=== PATIENT | male | born 1960 | race Caucasian/White ===

== ENCOUNTER 2018-09-16 14:31 | Outpatient (CLI) | payer OTHER ==
[2018-09-16] MEDS ORDERED: ACET-1600 PO (14:53)
[2018-09-16] MEDS ORDERED: MULT-718 PO (14:53)
[2018-09-16] MEDS ORDERED: GLUC1TAB55 PO (14:53)
[2018-09-16] MEDS ORDERED: MV-M1TAB16 PO (14:53)
[2018-09-16] MEDS ORDERED: CYAN25003 PO (14:53)
[2018-09-16] MEDS ORDERED: OXYC10TA47 PO (15:09)
[2018-09-16 15:26] LABS: BASOPHILS # (AUTO) 0.04 x10^3/uL (0-0.1); BASOPHILS % (AUTO) 1 % (0-1); EOSINOPHILS # (AUTO) 0.33 x10^3/uL (0-0.4); EOSINOPHILS % (AUTO) 6 % (1-7); LYMPHOCYTES # (AUTO) 1.39 x10^3/uL (1-3.4); LYMPHOCYTES % (AUTO) 25 % (22-44); MD NO; MEAN CORPUSCULAR HEMOGLOBIN 31.8 pg (27.5-34.5); MEAN CORPUSCULAR HGB CONC 34.3 g/dL (33.2-36.2); MEAN CORPUSCULAR VOLUME 92.7 fL (81-97); MONOCYTES # (AUTO) 0.52 x10^3/uL (0.2-0.8); MONOCYTES % (AUTO) 9 % (2-9); NEUTROPHILS # (AUTO) 3.32 x10^3/uL (1.8-6.8); NEUTROPHILS % (AUTO) 59 % (42-75); PLATELET COUNT 326 x10^3/uL (130-400); RED CELL DISTRIBUTION WIDTH 12.9 % (9.4-14.8)
[2018-09-16 15:35] LABS: ANION GAP 8 mmol/L (5-15); CALCIUM 8.8 mg/dL (8.5-10.1); CHLORIDE 106 mmol/L (98-107); CREATININE 1.02 mg/dL (0.7-1.3)
[2018-09-16 15:36] LABS: INTERNATIONAL NORMALIZED RATIO 0.99 (0.93-1.1); PROTHROMBIN TIME 10.4 Seconds (9.6-11.5)
[2018-09-21] MEDS ORDERED: PSYL1PAC9 PO (08:00)
[2018-09-21] MEDS ORDERED: LACT1CAP35 PO (08:00)
== END 2018-09-16 23:59 | disposition home or self-care (01) ==
LOC: STAR 14:31
PROVIDERS: ATTEND Neurological Surgery
DX: Z01.818 Encounter for other preprocedural examination (principal); S32.020A Wedge compression fracture of second lumbar vertebra, initial encounter for closed fracture; M47.816 Spondylosis without myelopathy or radiculopathy, lumbar region; X58.XXXA Exposure to other specified factors, initial encounter; Y93.89 Activity, other specified; Y92.89 Other specified places as the place of occurrence of the external cause; Y99.8 Other external cause status
CPT/HCPCS: 36415; 71046; 72100; 80048; 85025; 85610; 85730; 93005

== ENCOUNTER 2018-09-21 07:27 | Day surgery (SDC) | payer OTHER ==
[~2018-09-21] VITALS: Ht 177.8 cm; Wt 105.6 kg
== END 2018-09-21 13:20 | disposition home or self-care (01) ==
LOC: OUT 07:27
PROVIDERS: ATTEND Neurological Surgery
DX: M48.56XA Collapsed vertebra, not elsewhere classified, lumbar region, initial encounter for fracture (principal); Z72.89 Other problems related to lifestyle
CPT/HCPCS: 22514; 72100; 88307; 88311; C1713; J0330; J0690; J1100; J1170; J2250; J2704; J3010; J7120; Q0162; Q9965